=== PATIENT | female | born 1950 | race Caucasian/White ===

== ENCOUNTER → 2018-01-09 | Outpatient (CLI) | payer MEDICARE ==
[~2018-01-09] MED LIST: LIDOCAINE-MPF 1%, 5ML ONE; ROPivacaine/PF 0.2%, 10 ML ONE; TRIAMCINOLONE ACETONIDE 40 MG/ML, 1ML ONE
== END ==
LOC: RAD 08:45
PROVIDERS: ATTEND Orthopaedic Surgery
DX: M25.572 Pain in left ankle and joints of left foot (principal); M19.072 Primary osteoarthritis, left ankle and foot
CPT/HCPCS: 20605; 77002; J2795; J3301

== ENCOUNTER 2018-08-10 06:39 | Day surgery (SDC) | payer MEDICARE ==
[~2018-08-10] VITALS: Ht 152.4 cm; Wt 60.2 kg
[~2018-08-10 06:39] MED LIST changes: +CARI350T PO; +CYAN250013 PO; +LEVO50TA PO; -LIDOCAINE-MPF 1%, 5ML ONE; +LISI-167 PO; -ROPivacaine/PF 0.2%, 10 ML ONE; -TRIAMCINOLONE ACETONIDE 40 MG/ML, 1ML ONE; +VITA400T6 PO; +Vitamin D3 PO
[2018-08-10] MEDS ORDERED: SODIUM BICARBONATE 4.0%, 5ML ONE (07:15)
[2018-08-10] MEDS ORDERED: LIDOCAINE 1%, 20ML ONE (07:15)
[2018-08-10] MEDS ORDERED: BUPIVACAINE 0.25% ONE (07:47)
[2018-08-10 08:37] VITALS: BP 142/84
[2018-08-10] MEDS ORDERED: LACTATED RINGERS 1,000 ML IV SCH (08:43)
[2018-08-10] MEDS ORDERED: GABAPENTIN 300 MG CAPSULE PO ONE (09:00)
[2018-08-10] MEDS ORDERED: ACETAMINOPHEN 500 MG TABLET PO ONE (09:00)
[2018-08-10] MEDS ORDERED: FENTANYL PF 100 MCG/2ML ONE (12:00)
[2018-08-10] MEDS ORDERED: CEFAZOLIN 1,000 MG ONE (12:03)
[2018-08-10] MEDS ORDERED: DEXAMETHASONE 4 MG/ML, 1ML ONE (12:03)
[2018-08-10] MEDS ORDERED: PROPOFOL 10 MG/ML, 20ML ONE (12:03)
[2018-08-10] MEDS ORDERED: ONDANSETRON 2MG/ML, 2ML ONE (12:03)
[2018-08-10] MEDS ORDERED: KETOROLAC 30 MG/1 ML ONE (12:03)
[2018-08-10] MEDS ORDERED: MEPERIDINE/PF 25MG/0.5ML IVPush PRN (12:30)
[2018-08-10] MEDS ORDERED: hydrALAzine 20 MG/ML, 1ML IV PRN (12:30)
[2018-08-10] MEDS ORDERED: FENTANYL PF 100 MCG/2ML IV PRN (12:30)
[2018-08-10] MEDS ORDERED: LABETALOL 5MG/ML, 20ML IV PRN (12:30)
[2018-08-10] MEDS ORDERED: HALOPERIDOL 5 MG/ML IV PRN (12:30)
[2018-08-10] MEDS ORDERED: HYDROmorphone 2 MG/ML, 1ML IVPush PRN (12:30)
[2018-08-10] MEDS ORDERED: OXYcodone 5 MG/5 ML ORAL.SOL UDC PO PRN (12:30)
[2018-08-10] MEDS ORDERED: DIPHENHYDRAMINE 50 MG/ML, 1ML IVPush PRN (12:30)
[2018-08-10] MEDS ORDERED: PROCHLORPERAZINE 5 MG/ML, 2ML IV PRN (12:30)
[2018-08-10] MEDS ORDERED: OXYcodone 5 MG/5 ML ORAL.SOL UDC ONE (13:26)
== END 2018-08-10 15:20 | disposition home or self-care (01) ==
LOC: OUT 06:39 → EDSTATUS 10:00 → OUT 15:20
PROVIDERS: ATTEND Surgery
DX: D05.11 Intraductal carcinoma in situ of right breast (principal); R59.1 Generalized enlarged lymph nodes; I10 Essential (primary) hypertension; E03.9 Hypothyroidism, unspecified; Z87.39 Personal history of other diseases of the musculoskeletal system and connective tissue; Z85.828 Personal history of other malignant neoplasm of skin; Z98.890 Other specified postprocedural states; Z90.710 Acquired absence of both cervix and uterus; Z79.899 Other long term (current) drug therapy; Z88.1 Allergy status to other antibiotic agents; Z72.89 Other problems related to lifestyle
CPT/HCPCS: 19285; 19301; 38525; 38792; 76098; 77065; 88305; 88307; 88333; A9541; J0690; J1100; J1885; J2405; J2704; J3010; J3490; J7120

== ENCOUNTER 2018-11-11 08:00 | Outpatient (CLI) | payer MEDICARE | END 2018-11-11 23:59 | disposition home or self-care (01) | LOC: ROC 08:00 | PROVIDERS: ATTEND Radiology Radiation Oncology | DX: Z08 Encounter for follow-up examination after completed treatment for malignant neoplasm (principal); C50.511 Malignant neoplasm of lower-outer quadrant of right female breast | CPT/HCPCS: 99212; G0463 ==

== ENCOUNTER → 2018-11-19 | Outpatient (CLI) | payer MEDICARE | END | disposition home or self-care (01) | LOC: CFH 12:14 | PROVIDERS: ATTEND Internal Medicine Hematology & Oncology | DX: Z13.820 Encounter for screening for osteoporosis (principal); M81.0 Age-related osteoporosis without current pathological fracture; C50.811 Malignant neoplasm of overlapping sites of right female breast | CPT/HCPCS: 77080 ==

== ENCOUNTER 2019-04-15 11:53 | Outpatient (CLI) | payer MEDICARE | END 2019-04-15 23:59 | disposition home or self-care (01) | LOC: ROC 11:53 | PROVIDERS: ATTEND Radiology Radiation Oncology | DX: Z08 Encounter for follow-up examination after completed treatment for malignant neoplasm (principal); Z88.2 Allergy status to sulfonamides; Z88.5 Allergy status to narcotic agent; Z85.3 Personal history of malignant neoplasm of breast | CPT/HCPCS: 99212; G0463 ==

== ENCOUNTER 2020-02-02 09:33 | Outpatient (CLI) | payer MEDICARE ==
[~2020-02-02 09:33] MED LIST changes: +ANAS1TAB PO; +CALC1CAP8 PO; +CHOL200024 PO
== END 2020-02-02 23:59 | disposition home or self-care (01) ==
LOC: ROC 09:33
PROVIDERS: ATTEND Radiology Radiation Oncology
DX: Z08 Encounter for follow-up examination after completed treatment for malignant neoplasm (principal); C50.511 Malignant neoplasm of lower-outer quadrant of right female breast
CPT/HCPCS: 99212; G0463